=== PATIENT | female | born 1970 | race Caucasian/White ===

== ENCOUNTER 2019-03-01 21:23 | Emergency (ER) | payer BC, MEDICAID, SELFPAY ==
[2019-03-01 21:28] VITALS: BP 168/102; PULSE 62; RESP 20; TEMP 36.4; O2SAT 100; BMI 21.9
--- NOTE | 2019-03-01 22:24 | XR_ITS ---
WS: [id number] PORTABLE CHEST HISTORY: chest pain COMPARISON: 05/24/2018 Mild pulmonary hyperinflation. Increased density posterior to the RIGHT heart consistent with partial atelectasis of the RIGHT middle lobe. No pleural effusion or pneumothorax. Cardiac size: Normal. Mediastinum/Aorta: Normal mediastinum. No osseous abnormality seen. XR/XR chest 1V portable [id number] IMPRESSION: Partial atelectasis of the RIGHT middle lobe. Chronic emphysema.
--- NOTE | 2019-03-01 22:26 | W.ED.CHESTPA ---
HPI - Chest Pain General: Chief Complaint: Chest Pain Stated Complaint: cp Time Seen by Provider: 03/01/19 22:24 History of Present Illness: HPI narrative: Patient has a 48-year-old female comes into the ED with chest pain. She had an NH a couple years ago and is currently a smoker. She states that this chest pain is nothing like her chest pain when she had her NH. She says it feels like a pressure and it started out 3 weeks ago. The chest pain is not really changed much in the last 3 weeks. What brought her in today is she developed some pain in her right arm that radiated up into her shoulder. She states she has some shortness of breath if she uses the stairs. Denies fever, chills, cough, nasal congestion, sinus pain, abdominal pain, nausea, vomiting, constipation, diarrhea, hematuria, dysuria, blood in the stool. Denies any numbness or tingling or weakness to extremities. Patient is also has a little bit of itching and mild pressure/pain in his left ear. She says she takes an antihistamine daily to help manage nasal congestion. Review of Systems General: Reports: 10 or more systems reviewed and unremarkable except in HPI and below PFSH ED PFSH: Statuses (acute, chronic, etc) shown below reflect problem list status as previously entered and may not be historically accurate Social History Smoking and tobacco status: current every day smoker Physical Exam Const: COMMON NORMALS: oriented x3 HENMT: COMMON NORMALS: normocephalic HEAD & SCALP: normocephalic MOUTH: oral and palatal mucosa normal THROAT: posterior oropharynx normal and uvula midline Neck/C-Spine: COMMON NORMALS: supple GENERAL: Yes normal visual inspection Resp: COMMON NORMALS: normal respiratory effort, no retractions, no use of accessory muscles and clear to auscultation bilaterally AUSCULTATION: clear to auscultation bilaterally Cardio: COMMON NORMALS: regular rate, regular rhythm, S1 normal heart sound, S2 normal heart sound, no gallops, no clicks, no murmurs and peripheral pulses 2+ throughout RATE: regular rate RHYTHM: regular rhythm HEART SOUNDS: S1 normal and S2 normal PERIPHERAL PULSES: pulses 2+ throughout GI: COMMON NORMALS: normal to inspection, nondistended, normoactive bowel sounds, soft to palpation, non-tender and no masses PALPATION: Yes soft : COMMON NORMALS: Yes no CVA tenderness BLADDER/KIDNEY EXAM: Yes no CVA tenderness Back/Pelvis: COMMON NORMALS: no CVA tenderness Extremity: COMMON NORMALS: normal to inspection, full ROM and normal capillary refill RIGHT UPPER EXTREMITY: Yes upper arm Right upper arm: Yes inspection (normal), Yes palpation (nontender) and Yes neurovascular exam (intact) Neuro: COMMON NORMALS: oriented x3 and moves all extremities Course ED course: Patient had a HEART score of 4. I discussed with the patient her risks. I told patient that we would recommend that she stays gets admitted for some further cardiac testing such as a stress test. Patient decided to discharge instead against our medical advice. Vital Signs: Vital signs: Vital Signs Temperature 97.6 F 03/01/19 21:28 Pulse Rate 61 03/02/19 03:04 Respiratory Rate 16 03/02/19 03:04 Blood Pressure 133/97 03/02/19 03:04 Pulse Oximetry 95 03/02/19 03:04 MDM - Chest Pain MDM Narrative: Medical decision making narrative: Patient is a 48-year-old female comes to the ED with chest pain. Baseline and 2 hour Troponins were negative and EKG was normal sinus rhythm and showed no ST segment elevation or depression. I discussed with the patient's risk factors of prior NH, hypertension, high cholesterol and smoking. Patient had a HEART score of 4.I told patient that we would recommend that she stays and gets admitted for some further cardiac testing such as a stress test. Patient decided to discharge instead against our medical advice. She signed an AMA form and I made her aware of the risks of leaving here today against our recommendation. I also made her aware that she can return to the ED anytime for chest pain. Lab Data: Attestation: I reviewed the patient's lab results. Labs: Lab Results 03/01/19 03/01/19 03/01/19 Range/Units 22:50 22:50 22:50 WBC 9.3 (4.0-10.0) 10^3/ uL RBC 4.79 (4.1-5.3) 10^6/u L Hgb 15.1 (11.5-15.3) g/dL Hct 44.7 (37.0-47.0) % MCV 93.3 (81-99) fL MCH 31.5 (28.0-34.0) pg MCHC 33.8 (30.0-36.0) g/dL RDW 12.1 (12.1-15.1) % Plt Count 218 (130-400) 10^3/c mm MPV 9.3 (7.4-10.4) fL Neut % (Auto) 49.1 % Lymph % (Auto) 40.5 % [place] % (Auto) 6.9 % Eos % (Auto) 2.8 % Baso % (Auto) 0.5 % Neut # (Auto) 4.6 (1.8-7.7) 10^3/u L Lymph # (Auto) 3.8 (0.8-4.8) 10^3/u L [place] # (Auto) 0.6 (0.2-0.9) 10^3/u L Eos # (Auto) 0.3 (0.0-0.8) 10^3/u L Baso # (Auto) 0.1 (0.0-0.1) 10^3/u L Nucleated RBC % (a uto) 0 % Nucleated RBCs # 0.0 /100WBC Sodium 141 (136-145) mmol/L Potassium 3.8 (3.5-5.1) mmol/L Chloride 104 (98-107) mmol/L Carbon Dioxide 26 (22-29) mmol/L Anion Gap 14.8 (5-19) BUN 15 (6-20) mg/dL Creatinine 0.8 (0.5-0.9) mg/dL GFR Calculation 77.2 L (90-130) mL/min Glucose 100 (74-109) mg/dL Calcium 10.6 H (8.6-10.0) mg/Dl Total Bilirubin 0.2 (0.15-1.2) mg/dL AST 21 (0-32) U/L ALT 12 (0-33) U/L Alkaline Phosphata se 61 (35-105) IU/L Troponin T Baselin e 6 (0-10) ng/mL Troponin T 120 Min keith (0-10) ng/mL Delta Troponin T (0-10) ABS# Total Protein 6.5 L (6.6-8.7) g/dL Albumin 4.8 (3.5-5.2) g/dL Globulin 1.7 (1.3-4.6) g/dL HCG, Qual (Negative) Urine Color (Yellow) Urine Appearance (CLEAR) Urine pH (5-7) Ur Specific Gravit y (1.005-1.030) Urine Protein (Negative) Urine Glucose (UA) (Normal) Urine Ketones (Negative) Urine Occult Blood (Negative) Urine Nitrate (Negative) Urine Bilirubin (NEGATIVE) Urine Urobilinogen (Negative) mg/dL Ur Leukocyte Chichi ase (Negative) 03/02/19 03/02/19 03/02/19 Range/Units 00:02 00:02 00:41 WBC (4.0-10.0) 10^3/ uL RBC (4.1-5.3) 10^6/u L Hgb (11.5-15.3) g/dL Hct (37.0-47.0) % MCV (81-99) fL MCH (28.0-34.0) pg MCHC (30.0-36.0) g/dL RDW (12.1-15.1) % Plt Count (130-400) 10^3/c mm MPV (7.4-10.4) fL Neut % (Auto) % Lymph % (Auto) % [place] % (Auto) % Eos % (Auto) % Baso % (Auto) % Neut # (Auto) (1.8-7.7) 10^3/u L Lymph # (Auto) (0.8-4.8) 10^3/u L [place] # (Auto) (0.2-0.9) 10^3/u L Eos # (Auto) (0.0-0.8) 10^3/u L Baso # (Auto) (0.0-0.1) 10^3/u L Nucleated RBC % (a uto) % Nucleated RBCs # /100WBC Sodium (136-145) mmol/L Potassium (3.5-5.1) mmol/L Chloride (98-107) mmol/L Carbon Dioxide (22-29) mmol/L Anion Gap (5-19) BUN (6-20) mg/dL Creatinine (0.5-0.9) mg/dL GFR Calculation (90-130) mL/min Glucose (74-109) mg/dL Calcium (8.6-10.0) mg/Dl Total Bilirubin (0.15-1.2) mg/dL AST (0-32) U/L ALT (0-33) U/L Alkaline Phosphata se (35-105) IU/L Troponin T Baselin e (0-10) ng/mL Troponin T 120 Min keith 6.00 (0-10) ng/mL Delta Troponin T 0 (0-10) ABS# Total Protein (6.6-8.7) g/dL Albumin (3.5-5.2) g/dL Globulin (1.3-4.6) g/dL HCG, Qual Negative (Negative) Urine Color Yellow (Yellow) Urine Appearance Clear (CLEAR) Urine pH 5 (5-7) Ur Specific Gravit y 1.025 (1.005-1.030) Urine Protein Neg (Negative) Urine Glucose (UA) Norm (Normal) Urine Ketones Negative (Negative) Urine Occult Blood Neg (Negative) Urine Nitrate Negative (Negative) Urine Bilirubin Neg (NEGATIVE) Urine Urobilinogen 1 H (Negative) mg/dL Ur Leukocyte Chichi ase Negative (Negative) Imaging Data^: CXR: Attestation: I personally reviewed and interpreted this imaging study as follows: My impression: No acute findings. Pending final radiology report. EKG Data^: EKG 1: Attestation: I personally reviewed and interpreted this EKG as follows: EKG interpretation date: 03/01/19 Interpretation: Normal sinus rhythm. [address] segment elevation or depression noted. P waves present EKG 2: Attestation: I personally reviewed and interpreted this EKG as follows: EKG interpretation date: 03/02/19 EKG interpretation time: 02:15 Interpretation: Normal sinus rhythm. P waves present. [address] segment elevation or depression. Discharge Plan Discharge Patient Disposition: Home, Self-Care Clinical Impression: Atypical chest pain Condition: Stable Prescriptions: No Action atorvastatin 80 mg tablet 80 mg PO DAILY RF: 0 aspirin 81 mg Tablet,Delayed Release (Dr/Ec) 81 mg PO DAILY RF: 0 metoprolol tartrate 25 mg tablet 25 mg PO BID RF: 0 Discharge Orders: Discharge Order (Routine); Ordered 03/02/19 Ordered By: Evelio Alatorre Referrals: Yolanda Nuno DO [Primary Care Provider] - Discharge Diet: Regular Discharge Activity: Increase activity as tolerated Activity Restrictions/Additional Instructions: Follow-up with your primary care doctor in 5-7 days for reevaluation. Discussed with you your heart health risk factors such as smoking, high cholesterol and hypertension. It was our recommendation for you to be admitted for further cardiac evaluation and it was your decision to be discharged home. You were made aware of the potential risks and outcomes with you discharging home. Please return to ED at any time if you're experiencing further chest pain. Discharge Date/Time: 03/02/19 03:05 Coding Level of Care Code ED Account Classification Clerk for Luisito Barker
[2019-03-01 22:56] LABS: Basophils # 0.1 10^3/uL (0.0-0.1); Basophils % 0.5 %; Eosinophils # 0.3 10^3/uL (0.0-0.8); Eosinophils % 2.8 %; Hematocrit 44.7 % (37.0-47.0); Hemoglobin 15.1 g/dL (11.5-15.3); Lymphocytes # 3.8 10^3/uL (0.8-4.8); Lymphocytes % 40.5 %; Mean Corpuscular HGB Conc 33.8 g/dL (30.0-36.0); Mean Corpuscular Hemoglobin 31.5 pg (28.0-34.0); Mean Corpuscular Volume 93.3 fL (81-99); Mean Platelet Volume 9.3 fL (7.4-10.4); Monocytes # 0.6 10^3/uL (0.2-0.9); Monocytes % 6.9 %; Neutrophils # 4.6 10^3/uL (1.8-7.7); Neutrophils % 49.1 %; Nucleated Red Blood Cells % 0 %; Platelet Count 218 10^3/cmm (130-400); Red Blood Count 4.79 10^6/uL (4.1-5.3); Red Cell Distribution Width 12.1 % (12.1-15.1); White Blood Count 9.3 10^3/uL (4.0-10.0)
[2019-03-01 23:14] LABS: Alanine Aminotransferase 12 U/L (0-33); Albumin Level 4.8 g/dL (3.5-5.2); Alkaline Phosphatase 61 IU/L (35-105); Anion Gap 14.8 (5-19); Aspartate Amino Transferase 21 U/L (0-32); Blood Urea Nitrogen 15 mg/dL (6-20); Calcium 10.6 mg/Dl (8.6-10.0); Carbon Dioxide 26 mmol/L (22-29); Chloride 104 mmol/L (98-107); Globulin 1.7 g/dL (1.3-4.6); Glomerular Filtration Rate 77.2 mL/min (90-130); Glucose 100 mg/dL (74-109); Potassium 3.8 mmol/L (3.5-5.1); Sodium 141 mmol/L (136-145); Total Bilirubin 0.2 mg/dL (0.15-1.2); Total Protein 6.5 g/dL (6.6-8.7); Troponin(5th) Baseline 6 ng/mL (0-10)
[2019-03-02 00:09] LABS: Add Urine Microscopic? NO
[2019-03-02 00:11] LABS: Blood Urine Neg (Negative); Glucose Urine UA Norm (Normal); Ketones Urine Negative (Negative); Protein Urine Neg (Negative); Specific Gravity, Urine 1.025 (1.005-1.030); Urine Appearance Clear (CLEAR); Urine Color Yellow (Yellow); pH Urine 5 (5-7)
[2019-03-02 00:12] LABS: Bilirubin Urine Neg (NEGATIVE); HCG Qualitative Urine. Negative (Negative); Leukocyte Esterase Urine Negative (Negative); Nitrate Urine Negative (Negative); Urobilinogen Urine 1 mg/dL (Negative)
--- NOTE | 2019-03-02 00:24 | ECG_ITS ---
Measurements Intervals [place] Rate: 61 P: 66 ME: 168 QRS: 70 QRSD: 106 T: 52 QT: 443 QTc: 448 SINUS RHYTHM WITH SINUS ARRHYTHMIA Compared to ECG 05/24/2018 09:04:14 No significant changes Electronically Signed On 03-02-2019 15:28:18 POLITICAL ORGANIZER by Cuco Perera M.D. [id number]
[2019-03-02 01:12] LABS: Troponin 5 2HR Delta 0 ABS# (0-10)
[2019-03-02 03:04] VITALS: BP 133/97; PULSE 61; RESP 16; O2SAT 95
== END 2019-03-02 03:05 | disposition home or self-care (01) ==
PROVIDERS: Emergency Provider Physician Assistant; Family Provider Family Medicine; PCP Family Medicine
DX: R07.89 Other chest pain (principal); Z79.82 Long term (current) use of aspirin; F17.210 Nicotine dependence, cigarettes, uncomplicated
CPT/HCPCS: 36415; 71045; 80053; 81003; 81025; 84484; 85025; 93005; 99281

== ENCOUNTER → 2019-05-29 18:06 | Outpatient (BNVA) | payer BC, MEDICAID, SELFPAY | PROVIDERS: Family Provider Family Medicine; PCP Family Medicine; Visit Provider Nurse Practitioner Family | DX: N39.0 Urinary tract infection, site not specified (principal); B37.3 Candidiasis of vulva and vagina; J30.9 Allergic rhinitis, unspecified; S39.012A Strain of muscle, fascia and tendon of lower back, initial encounter | CPT/HCPCS: 81000 ==

== ENCOUNTER → 2019-09-18 14:51 | Outpatient (BNVA) | payer BC, MEDICAID, SELFPAY | PROVIDERS: Family Provider Family Medicine; PCP Family Medicine; Visit Provider Nurse Practitioner Family | DX: Z11.59 Encounter for screening for other viral diseases (principal); R68.83 Chills (without fever); R53.81 Other malaise; R53.83 Other fatigue; R05 Cough; R06.02 Shortness of breath | CPT/HCPCS: 87635 ==

== ENCOUNTER 2019-11-09 11:33 | Outpatient (CLI) | payer BC, MEDICAID, SELFPAY ==
--- NOTE | 2019-11-09 11:40 | MM_ITS ---
WS: [id number] SCREENING DIGITAL MAMMOGRAM WITH CAD HISTORY: SCREENING COMPARISON: 10/15/2017, 09/24/2017 and 07/03/2014 Bilateral CC and MLO views submitted. Computer aided detection analyzed. Breast composition: The breasts are heterogeneously dense, which may obscure small masses. Asymmetry seen in the posterior LEFT breast central to the nipple measures 10 mm. May be at the nippl e line on the lateral projection. Otherwise no abnormality. MM/[place] [id number] IMPRESSION: BI-RADS: 0-Incomplete: Need additional imaging evaluation FOLLOW UP: Need Additional Imaging LEFT breast: Spot compression views (CC and MLO). True ML. Ultrasound to follow if abnormality persists.
== END 2019-11-09 11:34 | disposition home or self-care (01) ==
LOC: RADSHAW 11:38
PROVIDERS: PCP Family Medicine; Visit Provider Family Medicine
DX: Z12.31 Encounter for screening mammogram for malignant neoplasm of breast (principal); N64.89 Other specified disorders of breast
CPT/HCPCS: 77067

== ENCOUNTER 2019-12-07 13:30 | Outpatient (CLI) | payer BC, MEDICAID, SELFPAY ==
--- NOTE | 2019-12-07 13:36 | US_ITS ---
WS: [id number] ADDITIONAL VIEWS LEFT MAMMOGRAM LEFT BREAST ULTRASOUND HISTORY: LT BREAST ASYMMETRY COMPARISON: 11/09/2019, 10/15/2017, 09/24/2017 and 07/07/2012 LEFT MAMMOGRAM: Spot compression views and true ML. Asymmetry persists in the posterior LEFT breast. Asymmetry measures about 7 mm. No distortion. LEFT BREAST ULTRASOUND 2-D and color Doppler imaging submitted. No corresponding findings by ultrasound to suggest a mass or distortion in the LEFT breast at 11-12 o 'clock. Breast parenchyma is very dense by ultrasound. US/US breast LT limited* [id number] IMPRESSION: BI-RADS: 3-Probably Benign FOLLOW UP: 6 Month Follow-up Recommend diagnostic LEFT mammogram in 6 months with possible ultrasound. I fav or this asymmetry within the LEFT breast is probably benign fibroglandular tiss ue but does appear to have slightly changed over the last several years.
== END 2019-12-07 13:31 | disposition home or self-care (01) ==
LOC: RADSHAW 13:34
PROVIDERS: PCP Family Medicine; Visit Provider Family Medicine
DX: N64.89 Other specified disorders of breast (principal)
CPT/HCPCS: 76642; 77065

== ENCOUNTER 2021-10-26 15:40 | Emergency (ER) | payer MEDICAID, SELFPAY ==
--- NOTE | 2021-10-26 15:40 | XRR_ITS ---
PROCEDURE INFORMATION: Exam: XR Chest Exam date and time: 10/26/2021 3:49 PM Age: 51 years old Clinical indication: Shortness of breath; Additional info: SOB TECHNIQUE: Imaging protocol: Radiologic exam of the chest. Views: 1 view. COMPARISON: CR XR chest 1V portable [id number] 03/01/2019 10:40 PM FINDINGS: Lungs: There is mild hyperinflation of lungs. No interstitial or airspace opacities. Pleural spaces: There are no pleural effusions or pneumothorax. Heart/Mediastinum: The heart size is normal. The mediastinal contour is normal. The trachea is in the midline. Bones/joints: No acute abnormalities. XR/XR chest 1V portable [id number] IMPRESSION: Mild hyperinflation of lungs. No interstitial or airspace opacities in the lungs.
--- NOTE | 2021-10-26 15:40 | ECG_ITS ---
[facility] Test Date: 2021-10-26 Pat Name: Maria De Jesus Black Department: Room: Gender: Female Magnetizer: : 1970 Requested By: Joesluis Dai Order Number: [id number] Mayra MD: Cuco Perera M.D. Measurements Intervals [place] Rate: 83 P: 75 SC: 134 QRS: 78 QRSD: 94 T: 68 QT: 379 QTc: 446 Interpretive Statements SINUS RHYTHM POSSIBLE LEFT ATRIAL ENLARGEMENT [-0.1mV P-WAVE IN V1/V2] Compared to ECG 03/02/2019 02:12:33 Sinus arrhythmia no longer present Electronically Signed On 10-26-2021 17:36:28 CDT by Cuco Perera M.D. [id number]
[2021-10-26 15:59] VITALS: BP 155/104; PULSE 76; RESP 16; TEMP 36.2; O2SAT 97; BMI 21.2
--- NOTE | 2021-10-26 16:31 | W.ED.BACK ---
HPI - Back Pain/Injury General: Chief Complaint: Back Pain/Injury Stated Complaint: SOB Time Seen by Provider: 10/26/21 16:20 History of Present Illness: 51-year-old female comes in today for complaints of cough, muscle aches, and congestion. Patient has been ill since last Wednesday but tested positive for COVID-19 on Wednesday. Patient works in the hospital stress unit. Patient reports productive cough. Patient was worried that she may be developing pneumonia. Review of Systems Const: Reports: body aches Resp: Reports: productive cough Musc: Reports: back pain PFSH ED PFSH: Medical History (Updated 10/26/21 @ 16:32 by SELIN Pa) ASHD (arteriosclerotic heart disease) Dyslipidemia HTN (hypertension) Ischemic cardiomyopathy Surgical History S/P PTCA (percutaneous transluminal coronary angioplasty) Family History Father Diabetes Hypertension Mother Hypertension Social History Smoking and tobacco status: current every day smoker cigarettes Packs smoked per day: 1 Alcohol intake: current Alcohol intake frequency: few times a month Marital status: Current occupational status: employed Physical Exam Const: COMMON NORMALS: alert HENMT: MOUTH: Normal oral and palatal mucosa present Neck/C-Spine: COMMON NORMALS: full ROM Resp: COMMON NORMALS: normal respiratory effort and clear to auscultation bilaterally AUSCULTATION: clear to auscultation bilaterally Cardio: COMMON NORMALS: regular rate and regular rhythm RATE: regular rate RHYTHM: regular rhythm GI: COMMON NORMALS: Soft to palpation and non-tender PALPATION: Yes Soft to palpation Back/Pelvis: THORACIC SPINE/UPPER BACK: No thoracic spinal tenderness LUMBAR SPINE/LOWER BACK: No lumbar spinal tenderness Extremity: COMMON NORMALS: normal to inspection Neuro: SENSORIUM/ORIENTATION: Yes alert Skin: COMMON NORMALS: turgor normal GENERAL SKIN EXAM: turgor normal Course Vital Signs: Vital signs: Vital Signs Temperature 97.1 F L 10/26/21 15:59 Pulse Rate 76 10/26/21 15:59 Respiratory Rate 16 09/18/22 15:59 Blood Pressure 155/104 09/18/22 15:59 Pulse Oximetry 97 10/26/21 15:59 Oxygen Delivery Me thod 10/26/21 15:59 MDM - Back Pain/Injury Medical Decision Making Patient comes in today for complaints of productive cough with back discomfort. On exam lungs had good air movement throughout. Skin was warm and dry. Respirations were even. Vital signs were normal. Differential diagnosis includes COVID-19, bronchitis secondary to COVID-19, pneumonia secondary to COVID-19. Chest x-ray was unremarkable. EKG was normal. Reviewed exam with patient with recommendations for treatment for bronchitis. Recommend follow-up with primary care for further instruction. Return to ER for new concerns or worsening symptoms. Discharge Plan Discharge Patient Disposition: Home Clinical Impression: COVID-19 Condition: Stable Prescriptions: New dexamethasone 6 mg tablet 6 mg PO DAILY Qty: 5 0RF No Action venlafaxine [Effexor XR] 37.5 mg capsule,extended release 24hr 37.5 mg PO DAILY cetirizine 10 mg tablet 10 mg PO DAILY atorvastatin 80 mg tablet 80 mg PO DAILY Qty: 90 3RF metoprolol tartrate 25 mg tablet 25 mg PO BID Qty: 180 3RF aspirin 81 mg Tablet,Delayed Release (Dr/Ec) 81 mg PO DAILY Discharge Orders: Discharge ED (Routine); Ordered 10/26/21 Ordered By: Naeem Asher Referrals: Brielle Lyles DO [Primary Care Provider] - Discharge Diet: Usual diet Discharge Activity: Increase activity as tolerated Patient Instructions: COVID-19 (Coronavirus Disease 2019) (ED) Activity Restrictions/Additional Instructions: Drink plenty of fluids. Use acetaminophen and ibuprofen for aches and pain. Take dexamethasone 6 mg daily for the next 5 days to help with cough, congestion, sore throat, and shortness of breath. Follow-up with primary care as needed. Return to ER for worsening symptoms such as fever greater than 100.4, shortness of breath, chest pain. Stand Alone Forms: Work/School Release Coding Level of Care Code ED Polysomnographic Technician for Luisito Barker
[2021-10-26 16:34] VITALS: BP 168/112; O2SAT 97
[2021-10-26] MEDS: dexamethasone 4 mg Tablet 6 MG PO (16:44)
== END 2021-10-26 16:56 | disposition home or self-care (01) ==
PROVIDERS: Emergency Provider Nurse Practitioner Family; PCP Family Medicine
DX: U07.1 COVID-19 (principal); Z79.82 Long term (current) use of aspirin; E78.5 Hyperlipidemia, unspecified; I10 Essential (primary) hypertension; F17.210 Nicotine dependence, cigarettes, uncomplicated
CPT/HCPCS: 71045; 93005; 99284; J8540

== ENCOUNTER 2021-11-17 12:59 | Emergency (ER) | payer MEDICAID, SELFPAY ==
[2021-11-17 13:47] VITALS: BP 157/102; PULSE 75; RESP 18; TEMP 36.7; O2SAT 96; BMI 21.9
--- NOTE | 2021-11-17 14:26 | W.ED.HA ---
HPI - Headache General: Chief Complaint: Headache Stated Complaint: Heachache, high BP Time Seen by Provider: 11/17/21 14:14 History of Present Illness: 51-year-old female presents with a headache for the last 4 days. She also feels like her blood pressures been running high. Patient reports that she has a history of high blood pressure but stopped taking her medication about a year ago. Patient is also currently on doxycycline due to infection in her finger. Patient reports that she is only got 1 or 2 days left of her doxycycline. Patient reports that the headache kind of starts in the back and wraps around to the bilateral front. She has some mild photophobia. She denies any nausea or vomiting. She reports her last couple days she been trying Tylenol and ibuprofen with minimal relief. She denies any fever, chills, vision changes, chest pain, shortness of breath. Associated symptoms: Deny chest pain, confusion, diaphoresis, fever(s), nausea, rash or vomiting Review of Systems Const: Denies: fever(s), chills or diaphoresis Eyes: Reports: photophobia; Denies: change in vision ENMT: Denies: throat pain or mouth pain Card: Denies: chest pain or palpitations Resp: Denies: dyspnea, non-productive cough or wheezing GI: Denies: abdominal pain, nausea or vomiting : Denies: flank pain or difficulty voiding Musc: Denies: neck pain or back pain Skin/Breast: Denies: rash or pruritus Neuro: Reports: headache(s); Denies: numbness in extremities, weakness in extremities, difficulty walking or confusion Psych: Denies: anxiety or depression [facility] ED PFSH: Medical History (Updated 10/26/21 @ 16:32 by SELIN Pa) ASHD (arteriosclerotic heart disease) Dyslipidemia HTN (hypertension) Ischemic cardiomyopathy Surgical History S/P PTCA (percutaneous transluminal coronary angioplasty) Family History Father Diabetes Hypertension Mother Hypertension Social History Smoking and tobacco status: current every day smoker cigarettes Packs smoked per day: 1 Alcohol intake: current Alcohol intake frequency: few times a month Marital status: Current occupational status: employed Course Vital Signs: Vital signs: Vital Signs Temperature 98.0 F 11/17/21 13:47 Pulse Rate 75 11/17/21 13:47 Respiratory Rate 18 11/17/21 13:47 Blood Pressure 175/112 11/17/21 14:42 Pulse Oximetry 96 11/17/21 13:47 Oxygen Delivery Me thod 11/17/21 13:47 MDM - Headache Medical Decision Making Patient felt better following treatment. Patient reports her headache started to go away prior to treatment with enalapril. However she felt significant better following the enalapril. Patient has no acute findings on her labs. We will start her on lisinopril. Patient stable and discharged home. Lab Data : 11/17/21 14:55 11/17/21 14:55 Laboratory Results WBC 8.9 10^3/uL (4.0-10.0) 11/17/21 14:55 RBC 5.44 10^6/uL (4.1-5.3) H 11/17/21 14:55 Hgb 17.0 g/dL (11.5-15.3) H 11/17/21 14:55 Hct 50.1 % (37.0-47.0) H 11/17/21 14:55 MCV 92.1 fl (81-99) 11/17/21 14:55 MCH 31.3 pg (28.0-34.0) 11/17/21 14:55 MCHC 33.9 g/dL (30.0-36.0) 11/17/21 14:55 RDW 12.3 % (12.1-15.1) 11/17/21 14:55 Plt Count 256 10^3/cmm (130-400) 11/17/21 14:55 MPV 9.2 fL (7.4-10.4) 11/17/21 14:55 Neut % (Auto) 43.0 % 11/17/21 14:55 Lymph % (Auto) 46.9 % 11/17/21 14:55 [place] % (Auto) 7.4 % 11/17/21 14:55 Eos % (Auto) 1.4 % 11/17/21 14:55 Baso % (Auto) 0.7 % 11/17/21 14:55 Neut # (Auto) 3.82 10^3/uL (1.8-7.7) 11/17/21 14:55 Lymph # (Auto) 4.2 10^3/uL (0.8-4.8) 11/17/21 14:55 [place] # (Auto) 0.7 10^3/uL (0.2-0.9) 11/17/21 14:55 Eos # (Auto) 0.1 10^3/uL (0.0-0.8) 11/17/21 14:55 Baso # (Auto) 0.1 10^3/uL (0.0-0.1) 11/17/21 14:55 Nucleated RBC % (auto) 0 % 11/17/21 14:55 Nucleated RBCs # 0.0 /100WBC 11/17/21 14:55 Sodium 138 mmol/L (136-145) 11/17/21 14:55 Chloride 103 mmol/L (98-107) 11/17/21 14:55 Carbon Dioxide 22 mmol/L (22-29) 11/17/21 14:55 BUN 15 mg/dL (6-20) 11/17/21 14:55 Creatinine 0.6 mg/dL (0.5-0.9) 11/17/21 14:55 GFR Calculation 106.3 mL/min (90-130) 11/17/21 14:55 Glucose 93 mg/dL (65-115) 11/17/21 14:55 Calculated Osmolality 287 mOsm/kg (285-295) 11/17/21 14:55 Calcium 9.4 mg/dL (8.5-10.5) 11/17/21 14:55 Magnesium 2.1 mg/dL (1.7-2.3) 11/17/21 14:55 Discharge Plan Discharge Condition: Stable Prescriptions: No Action doxycycline hyclate 100 mg tablet 100 mg PO BID 7 Days Qty: 14 0RF Aspir-81 81 mg Tablet,Delayed Release (Dr/Ec) 81 mg PO DAILY Advil 200 mg Tablet 200 mg PO Q6H PRN (Reason: Pain) Tylenol 325 mg Capsule 325 mg PO QID PRN (Reason: Pain) Coding Level of Care Code ED Metal Drill Operator for Chg Lucero
[2021-11-17 14:42] VITALS: BP 175/112
[2021-11-17] MEDS: sodium chloride 0.9% 1,000 ML 999 ML IV (14:42)
[2021-11-17] MEDS: ketorolac 30 mg/mL INJ 15 MG IVP (14:42)
[2021-11-17 15:02] LABS: Basophils # 0.1 10^3/uL (0.0-0.1); Basophils % 0.7 %; Eosinophils # 0.1 10^3/uL (0.0-0.8); Eosinophils % 1.4 %; Hematocrit 50.1 % (37.0-47.0); Lymphocytes # 4.2 10^3/uL (0.8-4.8); Lymphocytes % 46.9 %; Mean Corpuscular HGB Conc 33.9 g/dL (30.0-36.0); Mean Corpuscular Hemoglobin 31.3 pg (28.0-34.0); Mean Corpuscular Volume 92.1 fl (81-99); Mean Platelet Volume 9.2 fL (7.4-10.4); Monocytes # 0.7 10^3/uL (0.2-0.9); Monocytes % 7.4 %; Neutrophils # 3.82 10^3/uL (1.8-7.7); Nucleated Red Blood Cells % 0 %; Platelet Count 256 10^3/cmm (130-400); Red Blood Count 5.44 10^6/uL (4.1-5.3); Red Cell Distribution Width 12.3 % (12.1-15.1); White Blood Count 8.9 10^3/uL (4.0-10.0)
[2021-11-17] MEDS: enalaprilat 1.25 mg/mL Inj IVP (15:12)
[2021-11-17 15:26] LABS: Blood Urea Nitrogen 15 mg/dL (6-20); Calcium 9.4 mg/dL (8.5-10.5); Carbon Dioxide 22 mmol/L (22-29); Chloride 103 mmol/L (98-107); Glomerular Filtration Rate 106.3 mL/min (90-130); Glucose 93 mg/dL (65-115); Magnesium 2.1 mg/dL (1.7-2.3); Osmolality Calculated 287 mOsm/kg (285-295); Sodium 138 mmol/L (136-145)
[2021-11-17 15:56] LABS: Anion Gap 17.2 (5-19); Potassium 4.2 mmol/L (3.5-5.1)
[2021-11-17 16:17] VITALS: BP 136/94; PULSE 71; RESP 17; O2SAT 98
== END 2021-11-17 16:18 | disposition home or self-care (01) ==
PROVIDERS: Emergency Provider Student in an Organized Health Care Education/Training Program
DX: R51.9 Headache, unspecified (principal); I10 Essential (primary) hypertension
CPT/HCPCS: 80048; 83735; 85025; 96361; 96374; 96375; 99284; J1885; J3490; J7030

== ENCOUNTER 2022-04-23 08:03 | Emergency (ER) | payer OTHER, MEDICAID, SELFPAY ==
[2022-04-23] VITALS (16 sets, daily range): BP systolic 116–168; BP diastolic 74–120; PULSE 56–67; RESP 13–21; TEMP 36.3; O2SAT 96–100
--- NOTE | 2022-04-23 08:14 | XR_ITS ---
WS: [id number] XR chest 1V portable [id number] REASON FOR EXAM: chest pain FINDINGS: The chest is unchanged compared to 10/26/2021. Risk aorta and mediastinum are within normal limits. Normal heart size. Calcified granulomatous disease in both hemithoraces. No active pulmonary parenchymal or pleural disease. Bony thorax is intact without significant focal abnormality. XR/XR chest 1V portable [id number] IMPRESSION: No acute chest abnormality.
--- NOTE | 2022-04-23 08:19 | ECG_ITS ---
[facility] Test Date: 2022-04-23 Pat Name: Maria De Jesus Black Department: Room: Gender: Female Nursing Unit Manager: : 1970 Requested By: Ari Cavazos Order Number: [id number] Reading MD: DESI DAILEY Measurements Intervals [place] Rate: 68 P: 74 MD: 150 QRS: 74 QRSD: 101 T: 72 QT: 424 QTc: 452 Interpretive Statements SINUS RHYTHM EARLY REPOLARIZATION [ST ELEVATION WITH NORMALLY INFLECTED T-WAVE] Compared to ECG 10/26/2021 16:07:05 Early repolarization now present Electronically Signed On 04-25-2022 23:40:57 CDT by DESI DAILEY [id number]
--- NOTE | 2022-04-23 08:21 | W.ED.CHESTPA ---
HPI - Chest Pain General: Chief Complaint: Chest Pain Stated Complaint: Chest Pain Time Seen by Provider: 04/23/22 08:04 Source: patient Mode of arrival: ambulatory History of Present Illness: 52-year-old female presents to the emergency room with complaints of chest discomfort that began this morning after she had gotten up had a cup of coffee she was going for second cup of coffee began to have chest pain left-sided radiating to her left arm. She has a known history of coronary disease with mild ischemic cardiomyopathy. There is a history of dyslipidemia and hypertension. There is been some issues with her blood pressure control in the past previous cardiology note reviewed she was recently switched from lisinopril to metoprolol. MD complaint: chest pain Onset: during rest Pain location: left chest Pain radiation: left arm Quality: tightness and aching Exacerbating factors: nothing Associated symptoms: Deny abdominal pain, diaphoresis, dyspnea, fever(s), leg edema, nausea, palpitations, sense of impending doom, syncope or vomiting Treatment prior to arrival: aspirin Review of Systems Const: Denies: fever(s), chills, fatigue, malaise or diaphoresis ENMT: Denies: throat pain, ear or mastoid pain, nasal discharge or nasal congestion Card: Reports: chest pain; Denies: palpitations, irregular heart rhythm, edema or syncope Resp: Denies: dyspnea GI: Denies: abdominal pain, nausea or vomiting : Denies: flank pain, difficulty voiding, dysuria, urinary frequency or urinary urgency Skin/Breast: Denies: rash or pruritus PFSH ED PFSH: Medical History (Updated 04/23/22 @ 11:29 by Ari Ramesh DO) ASHD (arteriosclerotic heart disease) Dyslipidemia HTN (hypertension) Ischemic cardiomyopathy Surgical History (Updated 04/23/22 @ 11:29 by Ari Ramesh DO) S/P PTCA (percutaneous transluminal coronary angioplasty) Family History Father Diabetes Hypertension Mother Hypertension Social History Smoking and tobacco status: current every day smoker cigarettes Packs smoked per day: 1 Alcohol intake: current Alcohol intake frequency: few times a month Marital status: Current occupational status: employed Physical Exam Const: GENERAL APPEARANCE: cooperative and comfortable ORIENTATION/CONSCIOUSNESS: Yes awake, Yes oriented to person, Yes oriented to place and Yes oriented to time HENMT: COMMON NORMALS: normocephalic, atraumatic and hearing grossly normal bilaterally HEAD & SCALP: normocephalic and atraumatic Resp: COMMON NORMALS: normal respiratory effort, No retractions, No use of accessory muscles and clear to auscultation bilaterally AUSCULTATION: clear to auscultation bilaterally Cardio: COMMON NORMALS: regular rhythm and No murmurs present (Cardio) RATE: bradycardic RHYTHM: regular rhythm GI: COMMON NORMALS: Soft to palpation and No hepatosplenomegaly present AUSCULTATION: Yes normoactive bowel sounds PALPATION: Yes Soft to palpation, No Tenderness to palpation present (GI), No Guarding due to palpation present (GI) and Yes No hepatosplenomegaly present Extremity: COMMON NORMALS: normal to inspection, capillary refill normal, no clubbing, cyanosis or edema, no calf tenderness and no pedal edema Neuro: SENSORIUM/ORIENTATION: Yes oriented to person, Yes oriented to place and Yes oriented to time Skin: COMMON NORMALS: no rashes or lesions noted GENERAL SKIN EXAM: no rashes or lesions noted Course Vital Signs: Vital signs: Vital Signs Temperature 97.4 F L 04/23/22 08:09 Pulse Rate 67 04/23/22 11:15 Respiratory Rate 17 04/23/22 11:15 Blood Pressure 135/102 04/23/22 11:45 Pulse Oximetry 96 04/23/22 11:30 MDM - Chest Pain Medical Decision Making Labs imaging and EKG reviewed no acute EKG changes. Cardiac enzymes trended normal. She had single-vessel disease which was addressed at the time of her cath remainder of her coronary arteries were normal at her previous heart cath. We will set her up for a Lexiscan sestamibi stress test. Her blood pressure still mildly elevated add 2.5 of amlodipine her heart rate is down in the 60s I do not think she tolerated an increase in the metoprolol. Finally we will add proton pump inhibitor have her follow-up with her primary care doctor in a week to recheck blood pressure and after her stress test is completed. Medical Records I reviewed the patient's medical records. Lab Data I reviewed the patient's lab results. 04/23/22 08:33 03/16/23 08:33 Radiology Impressions Chest X-Ray 04/23/22 08:14 IMPRESSION: No acute chest abnormality. Laboratory Results WBC 8.4 10^3/uL (4.0-10.0) 04/23/22 08:33 RBC 4.99 10^6/uL (4.1-5.3) 04/23/22 08:33 Hgb 15.4 g/dL (11.5-15.3) H 04/23/22 08:33 Hct 48.0 % (37.0-47.0) H 04/23/22 08:33 MCV 96.2 fl (81-99) 04/23/22 08:33 MCH 30.9 pg (28.0-34.0) 04/23/22 08:33 MCHC 32.1 g/dL (30.0-36.0) 04/23/22 08:33 RDW 13.1 % (12.1-15.1) 04/23/22 08:33 Plt Count 242 10^3/cmm (130-400) 04/23/22 08:33 MPV 9.0 fL (7.4-10.4) 04/23/22 08:33 Neut % (Auto) 51.5 % 04/23/22 08:33 Lymph % (Auto) 37.8 % 04/23/22 08:33 [place] % (Auto) 7.2 % 04/23/22 08:33 Eos % (Auto) 2.4 % 04/23/22 08:33 Baso % (Auto) 0.7 % 04/23/22 08:33 Neut # (Auto) 4.31 10^3/uL (1.8-7.7) 04/23/22 08:33 Lymph # (Auto) 3.2 10^3/uL (0.8-4.8) 04/23/22 08:33 [place] # (Auto) 0.6 10^3/uL (0.2-0.9) 04/23/22 08:33 Eos # (Auto) 0.2 10^3/uL (0.0-0.8) 04/23/22 08:33 Baso # (Auto) 0.1 10^3/uL (0.0-0.1) 04/23/22 08:33 Nucleated RBC % (auto) 0 % 04/23/22 08:33 Nucleated RBCs # 0.0 /100WBC 04/23/22 08:33 Sodium 138 mmol/L (136-145) 04/23/22 08:33 Potassium 4.3 mmol/L (3.5-5.1) 04/23/22 08:33 Chloride 105 mmol/L (98-107) 04/23/22 08:33 Carbon Dioxide 24 mmol/L (22-29) 04/23/22 08:33 Anion Gap 13.3 (5-19) 04/23/22 08:33 BUN 11 mg/dL (6-20) 04/23/22 08:33 Creatinine 0.6 mg/dL (0.5-0.9) 04/23/22 08:33 GFR Calculation 105.8 mL/min (90-130) 04/23/22 08:33 Glucose 85 mg/dL (65-115) 04/23/22 08:33 Calculated Osmolality 285 mOsm/kg (285-295) 04/23/22 08:33 Calcium 9.1 mg/dL (8.5-10.5) 04/23/22 08:33 Total Bilirubin 0.2 mg/dL (0.15-1.2) 04/23/22 08:33 AST 15 U/L (0-32) 04/23/22 08:33 ALT 7 U/L (0-33) 04/23/22 08:33 Alkaline Phosphatase 58 U/L (35-105) 04/23/22 08:33 Troponin T Baseline 6 ng/L (0-10) 04/23/22 08:33 Troponin T 120 Minute 6.00 ng/L (0-10) 04/23/22 10:45 Delta Troponin T 0 ABS# (0-10) 04/23/22 10:45 Total Protein 6.5 g/dL (6.6-8.7) L 04/23/22 08:33 Albumin 4.1 g/dL (3.5-5.2) 04/23/22 08:33 Globulin 2.4 g/dL (1.3-4.6) 04/23/22 08:33 Discharge Plan Discharge Patient Disposition: Home Clinical Impression: Atypical chest pain, S/P PTCA (percutaneous transluminal coronary angioplasty), HTN (hypertension), ASHD (arteriosclerotic heart disease) Condition: Stable Prescriptions: New Protonix 40 mg tablet,delayed release (DR/EC) 40 mg PO DAILY Qty: 30 1RF amlodipine 2.5 mg tablet 2.5 mg PO DAILY Qty: 30 0RF No Action metoprolol succinate [Toprol XL] 25 mg tablet extended release 24 hr 25 mg PO DAILY Qty: 90 5RF aspirin [Aspir-81] 81 mg Tablet,Delayed Release (Dr/Ec) 81 mg PO DAILY ibuprofen [Advil] 200 mg Tablet 200 mg PO Q6H PRN (Reason: Pain) acetaminophen [Tylenol] 325 mg Capsule 325 mg PO QID PRN (Reason: Pain) Vitamin D3 25 mcg (1,000 unit) Tablet 25 mcg PO DAILY Women's 50 Plus Multivitamin 400 mcg-500 mg calcium-20 mcg Tablet 1 tab PO DAILY Discharge Orders: Discharge ED (Routine); Ordered 04/23/22 Ordered By: Ari Ramesh Discharge Diet: Usual diet Discharge Activity: Limit activity as instructed Patient Instructions: Opioid Safety, Pain Management Activity Restrictions/Additional Instructions: PressureYou were seen today for an episode of chest pain your EKGs cardiac enzymes were negative. There is no acute changes on your EKG. Given your history of heart disease we recommend that you have a Lexiscan sestamibi stress test done. There is still running slightly elevated recommend you start a small dose of amlodipine 2.5 mg daily. Finally start Protonix 40 mg daily follow-up with your primary care doctor or wing mailer machine operator to reevaluate blood pressure within a week and after your stress test is completed. Coding Level of Care Code ED Senior Fire Protection Engineer for Luisito Barker
[2022-04-23] MEDS: aspirin 81 mg Chew Tablet 162 MG PO (08:31)
--- NOTE | 2022-04-23 08:40 | PC.NURSE ---
PT PLACED ON CONTINUOUS SPO2, NIBP, AND CM.
[2022-04-23 08:52] LABS: Basophils # 0.1 10^3/uL (0.0-0.1); Basophils % 0.7 %; Eosinophils # 0.2 10^3/uL (0.0-0.8); Eosinophils % 2.4 %; Hemoglobin 15.4 g/dL (11.5-15.3); Lymphocytes # 3.2 10^3/uL (0.8-4.8); Lymphocytes % 37.8 %; Mean Corpuscular HGB Conc 32.1 g/dL (30.0-36.0); Mean Corpuscular Hemoglobin 30.9 pg (28.0-34.0); Mean Corpuscular Volume 96.2 fl (81-99); Monocytes # 0.6 10^3/uL (0.2-0.9); Monocytes % 7.2 %; Neutrophils # 4.31 10^3/uL (1.8-7.7); Neutrophils % 51.5 %; Nucleated Red Blood Cells % 0 %; Platelet Count 242 10^3/cmm (130-400); Red Blood Count 4.99 10^6/uL (4.1-5.3); Red Cell Distribution Width 13.1 % (12.1-15.1); White Blood Count 8.4 10^3/uL (4.0-10.0)
[2022-04-23 09:12] LABS: Alanine Aminotransferase 7 U/L (0-33); Albumin Level 4.1 g/dL (3.5-5.2); Alkaline Phosphatase 58 U/L (35-105); Anion Gap 13.3 (5-19); Aspartate Amino Transferase 15 U/L (0-32); Blood Urea Nitrogen 11 mg/dL (6-20); Calcium 9.1 mg/dL (8.5-10.5); Carbon Dioxide 24 mmol/L (22-29); Chloride 105 mmol/L (98-107); Creatinine Clr Calc Pharmacy 98.2125; Globulin 2.4 g/dL (1.3-4.6); Glomerular Filtration Rate 105.8 mL/min (90-130); Glucose 85 mg/dL (65-115); Osmolality Calculated 285 mOsm/kg (285-295); Potassium 4.3 mmol/L (3.5-5.1); Sodium 138 mmol/L (136-145); Total Bilirubin 0.2 mg/dL (0.15-1.2); Total Protein 6.5 g/dL (6.6-8.7)
[2022-04-23 09:15] LABS: Troponin(5th) Baseline 6 ng/L (0-10)
--- NOTE | 2022-04-23 10:23 | ECG_ITS ---
[facility] Test Date: 2022-04-23 Pat Name: Maria De Jesus Black Department: Room: Gender: Female Director Athletic: : 1970 Requested By: Ari Cavazos Order Number: [id number] Reading MD: DESI DAILEY Measurements Intervals [place] Rate: 72 P: 68 MN: 155 QRS: 73 QRSD: 94 T: 72 QT: 406 QTc: 445 Interpretive Statements SINUS RHYTHM EARLY REPOLARIZATION [ST ELEVATION WITH NORMALLY INFLECTED T-WAVE] Compared to ECG 04/23/2022 08:14:26 No significant changes Electronically Signed On 04-25-2022 23:45:38 CDT by DESI DAILEY [id number]
[2022-04-23 11:30] LABS: Troponin 5 2HR Delta 0 ABS# (0-10)
--- NOTE | 2022-04-23 16:25 | DCPLANNER ---
professional development manager called patient due to no primary care physician - patient declines at this time
== END 2022-04-23 11:53 | disposition home or self-care (01) ==
PROVIDERS: Emergency Provider Family Medicine
DX: I10 Essential (primary) hypertension (principal); E78.5 Hyperlipidemia, unspecified; I25.10 Atherosclerotic heart disease of native coronary artery without angina pectoris; I25.5 Ischemic cardiomyopathy; F17.210 Nicotine dependence, cigarettes, uncomplicated; Z79.82 Long term (current) use of aspirin; Z98.61 Coronary angioplasty status
CPT/HCPCS: 71045; 80053; 84484; 85025; 93005; 99285

== ENCOUNTER 2022-07-10 18:30 | Emergency (ER) | payer MEDICAID, SELFPAY ==
[2022-07-10 18:33] VITALS: BP 155/102; PULSE 66; RESP 17; TEMP 36.6; O2SAT 97
--- NOTE | 2022-07-10 18:36 | ECG_ITS ---
[facility] Test Date: 2022-07-10 Pat Name: Maria De Jesus Black Department: Room: Gender: Female Hunter Skin Diver: : 1970 Requested By: Melvin Pickard Order Number: [id number] Nunez MD: Faheem Smart M.D. Measurements Intervals [place] Rate: 58 P: 72 CT: 154 QRS: 69 QRSD: 94 T: 65 QT: 429 QTc: 422 Interpretive Statements SINUS BRADYCARDIA POSSIBLE LEFT ATRIAL ENLARGEMENT [-0.1mV P-WAVE IN V1/V2] MINIMAL ST DEPRESSION [0.025+ mV ST DEPRESSION] Compared to ECG 04/23/2022 10:23:51 ST (T wave) deviation now present Sinus rhythm no longer present Early repolarization no longer present Electronically Signed On 07-11-2022 10:24:52 CDT by Faheem Smart M.D. [id number]
--- NOTE | 2022-07-16 13:09 | DCPLANNER ---
operations program manager called patient due to no primary care physician - patient stated that she sees Dr. Lyles at [facility].
== END 2022-07-10 20:56 | disposition left against medical advice (07) ==
PROVIDERS: Emergency Provider Family Medicine; PCP Family Medicine
DX: Z53.21 Procedure and treatment not carried out due to patient leaving prior to being seen by health care provider (principal)
CPT/HCPCS: 93005; 99283

== ENCOUNTER 2022-07-28 06:40 | Outpatient (CLI) | payer MEDICAID, SELFPAY ==
[2022-07-28 07:02] LABS: Basophils # 0.1 10^3/uL (0.0-0.1); Basophils % 1.1 %; Eosinophils # 0.3 10^3/uL (0.0-0.8); Eosinophils % 4.4 %; Hematocrit 48.1 % (37.0-47.0); Hemoglobin 15.9 g/dL (11.5-15.3); Lymphocytes # 3.1 10^3/uL (0.8-4.8); Lymphocytes % 42.9 %; Mean Corpuscular HGB Conc 33.1 g/dL (30.0-36.0); Mean Corpuscular Hemoglobin 31.3 pg (28.0-34.0); Mean Corpuscular Volume 94.7 fl (81-99); Monocytes # 0.4 10^3/uL (0.2-0.9); Neutrophils # 3.26 10^3/uL (1.8-7.7); Neutrophils % 45.2 %; Nucleated Red Blood Cells % 0 %; Platelet Count 216 10^3/cmm (130-400); Red Blood Count 5.08 10^6/uL (4.1-5.3); Red Cell Distribution Width 12.4 % (12.1-15.1); White Blood Count 7.2 10^3/uL (4.0-10.0)
[2022-07-28 07:23] LABS: Estmated Average Glucose 123; Hemoglobin A1C 5.9 % (4.0-6.0)
[2022-07-28 07:32] LABS: Alanine Aminotransferase 7 U/L (0-33); Albumin Level 4.3 g/dL (3.5-5.2); Alkaline Phosphatase 58 U/L (35-105); Anion Gap 15.6 (5-19); Aspartate Amino Transferase 18 U/L (0-32); Blood Urea Nitrogen 14 mg/dL (6-20); Calcium 9.2 mg/dL (8.5-10.5); Carbon Dioxide 23 mmol/L (22-29); Chloride 107 mmol/L (98-107); Cholesterol 263 mg/dL (0-200); Globulin 2.4 g/dL (1.3-4.6); Glomerular Filtration Rate 88.6 mL/min (90-130); Glucose 94 mg/dL (65-115); HDL Cholesterol 47 mg/dL (60-100); LDL Cholesterol Calculated 203 mg/dL (50-129); LDL HDL Ratio 4.32 RATIO (0.00-3.22); Osmolality Calculated 292 mOsm/kg (285-295); Potassium 4.6 mmol/L (3.5-5.1); Sodium 141 mmol/L (136-145); Thyroid Stimulating Hormone 0.62 uIU/mL (0.27-4.20); Total Bilirubin 0.3 mg/dL (0.15-1.2); Total Protein 6.7 g/dL (6.6-8.7); Triglycerides 63 mg/dL (0-150)
--- NOTE | 2022-07-28 17:47 | XR_ITS ---
WS: [id number] EXAMINATION: XR lumbar spine 2-3V* [id number] L-SPINE : 3 views REASON FOR EXAM: Chronic midline low back pain with right-sided sciatica COMPARISON: None available. ORDER DATE: 07/28/2022 5:48 PM FINDINGS: The lumbar vertebral bodies and the disc spaces are normal in width. In the lumbar vertebra, there i s no evidence of compression deformities or spondylolisthesis. There are small calcifications superim posing each kidney consistent with small intrarenal calculi Tubal ligation noted XR/XR lumbar spine 2-3V* [id number] IMPRESSION: UNREMARKABLE LUMBAR SPINE STUDY
== END 2022-07-28 06:41 | disposition home or self-care (01) ==
PROVIDERS: Visit Provider Family Medicine
DX: E11.69 Type 2 diabetes mellitus with other specified complication (principal); E78.2 Mixed hyperlipidemia; I10 Essential (primary) hypertension; M54.41 Lumbago with sciatica, right side; G89.29 Other chronic pain
CPT/HCPCS: 36415; 72100; 80053; 80061; 83036; 84443; 85025

== ENCOUNTER → 2022-12-07 14:11 | Outpatient (BNVA) | payer SELFPAY | PROVIDERS: Visit Provider Family Medicine | DX: R68.83 Chills (without fever) (principal); R53.81 Other malaise; R53.83 Other fatigue; R05.9 Cough, unspecified | CPT/HCPCS: 87400; 87426 ==

== ENCOUNTER 2023-07-09 06:20 | Outpatient (CLI) | payer OTHER, SELFPAY ==
--- NOTE | 2023-07-09 06:30 | US_ITS ---
WS: [id number] US transvaginal [id number] HISTORY: VAGINAL BLEEDING COMPARISON: 12/30/2016 Uterus: 7.3 cm x 5.5 cm x 4.4 cm. Anteverted uterus is very heterogeneous. Areas of decreased and increased echogenicity scattered thro ughout the uterus. Fibroids were identified on the prior examination from 2016. These fibroids are mo re difficult to identify today. 1 of these fibroids is noted to the LEFT myometrium measuring 1.6 x 1 .2 x 1.4 cm. The junctional zone adjacent to the endometrium is ill-defined. Nabothian cyst. Endometrium: 0.9 cm. Abnormal endometrium. Endometrium is heterogeneous with loss of the normal junct ional zone. There is an area of increased echogenicity along the posterior endometrium which may be a site of prior ablation. The endometrium is very heterogeneous. There is thickening of the endometriu m centrally. Fibroid is not excluded. Right ovary: 2.7 cm x 1.9 cm x 1.3 cm. Normal size and vascularity, no cystic or solid masses. Left ovary: 1.8 cm x 1.8 cm x 1.4 cm. Normal size and vascularity, no cystic or solid masses. No free fluid in the cul-de-sac. US/US transvaginal [id number] IMPRESSION: 1. Abnormal endometrium. Heterogeneous endometrium with areas of focal thicken ing measuring up to 0.9 cm. Loss of the normal junctional zone. Due to the hete rogeneity and loss of the junctional zone direct visualization is recommended. 2. Heterogeneous uterus is normal size. Fibroids were identified on the prior examination. These fibroids are difficult to identify today due to the diffuse heterogeneity throughout the uterus. Suspect diffuse fibroid involvement.
== END 2023-07-09 06:21 | disposition home or self-care (01) ==
LOC: RAD 06:20
PROVIDERS: PCP Family Medicine; Visit Provider Nurse Practitioner Family
DX: N93.8 Other specified abnormal uterine and vaginal bleeding (principal)
CPT/HCPCS: 76830

== ENCOUNTER → 2024-01-28 10:38 | Outpatient (BNVA) | payer OTHER, SELFPAY | PROVIDERS: PCP Family Medicine | DX: R39.9 Unspecified symptoms and signs involving the genitourinary system (principal) | CPT/HCPCS: 81000 ==

== ENCOUNTER → 2024-02-07 09:15 | Outpatient (BNVA) | payer OTHER, SELFPAY | PROVIDERS: PCP Family Medicine; Visit Provider Emergency Medicine | DX: R39.9 Unspecified symptoms and signs involving the genitourinary system (principal); N39.0 Urinary tract infection, site not specified | CPT/HCPCS: 81000; 87086 ==

== ENCOUNTER 2024-02-08 14:32 | Outpatient (CLI) | payer OTHER, SELFPAY ==
--- NOTE | 2024-02-08 14:40 | XR_ITS ---
WS: [email or web address] SCREENING DEXA SCAN [email or web address] CLINICAL INFORMATION: POSTMENOPAUSAL COMPARISON: None. FINDINGS: The L1-L4 bone mineral density measures 1.134 g/cm2. This corresponds to a T score score of -0.4 and Z score of 0.3. Left femoral neck bone mineral density measures 0.932 g/cm2. This corresponds to a T score of -0.6 an d Z score of 0.1. Right femoral neck bone mineral density measures 0.925 g/cm2. This corresponds to a T score -0.7of an d Z score of 0.0. Mean femoral neck bone mineral density measures 0.929 g/cm2. This corresponds to a T score of -0.6 an d Z score of 0.0. XR/XR DEXA axial skeleton* [id number] IMPRESSION: Normal bone mineralization. Patient's FRAX calculated 10 year probability for major osteoporotic fracture i s 4.2% and osteoporotic hip fracture is 0.2%.
== END 2024-02-08 14:33 | disposition home or self-care (01) ==
PROVIDERS: Visit Provider Nurse Practitioner
DX: Z13.820 Encounter for screening for osteoporosis (principal); Z78.0 Asymptomatic menopausal state
CPT/HCPCS: 77080

== ENCOUNTER → 2024-02-21 18:02 | Outpatient (BNVA) | payer OTHER, SELFPAY | PROVIDERS: Visit Provider Family Medicine | DX: R39.9 Unspecified symptoms and signs involving the genitourinary system (principal) | CPT/HCPCS: 81000 ==

== ENCOUNTER 2024-03-06 08:17 | Outpatient (CLI) | payer OTHER, SELFPAY ==
[2024-03-06 09:28] LABS: Calcium 9.2 mg/dL (8.5-10.5)
[2024-03-06 09:34] LABS: 25 Hydroxy Vitamin D 53 ng/mL (30-100); Alanine Aminotransferase 11 U/L (0-33); Albumin Level 4.2 g/dL (3.5-5.2); Alkaline Phosphatase 105 U/L (35-105); Anion Gap 17.1 (5-19); Aspartate Amino Transferase 19 U/L (0-32); Blood Urea Nitrogen 11 mg/dL (6-20); Calcium 9.2 mg/dL (8.5-10.5); Carbon Dioxide 22 mmol/L (22-29); Chloride 102 mmol/L (98-107); Globulin 2.9 g/dL (1.3-4.6); Glomerular Filtration Rate 105.4 mL/min (90-130); Glucose 134 mg/dL (65-115); Magnesium 1.8 mg/dL (1.7-2.3); Osmolality Calculated 285 mOsm/kg (285-295); Phosphorus 2.7 mg/dL (2.5-4.5); Potassium 4.1 mmol/L (3.5-5.1); Sodium 137 mmol/L (136-145); Thyroid Stimulating Hormone 0.77 uIU/mL (0.27-4.20); Total Bilirubin 0.3 mg/dL (0.15-1.2); Total Protein 7.1 g/dL (6.6-8.7)
[2024-03-06 09:36] LABS: Parathyroid Hormone 40.7 pg/mL (15-65)
[2024-03-07 08:55] LABS: PROTEIN, TOTAL 6.6 g/dL (6.1-8.1)
[2024-03-07 20:45] LABS: ALPHA 1 GLOBULIN 0.2 g/dL (0.2-0.3); ALPHA 2 GLOBULIN 0.7 g/dL (0.5-0.9); BETA 1 GLOBULIN 0.4 g/dL (0.4-0.6); BETA 2 GLOBULIN 0.4 g/dL (0.2-0.5); GAMMA GLOBULIN 0.9 g/dL (0.8-1.7)
== END 2024-03-06 08:18 | disposition home or self-care (01) ==
LOC: LAB 08:24
PROVIDERS: PCP Family Medicine; Visit Provider Nurse Practitioner
DX: T14.8XXA Other injury of unspecified body region, initial encounter (principal); Z78.0 Asymptomatic menopausal state; F43.21 Adjustment disorder with depressed mood; Z72.0 Tobacco use; E55.9 Vitamin D deficiency, unspecified; X58.XXXA Exposure to other specified factors, initial encounter
CPT/HCPCS: 36415; 80053; 82306; 82310; 83735; 83970; 84100; 84155; 84165; 84443; 86334

== ENCOUNTER 2024-03-28 08:25 | Outpatient (CLI) | payer OTHER, SELFPAY ==
--- NOTE | 2024-03-28 08:40 | MM_ITS ---
WS: [id number] BILATERAL 3D TOMOSYNTHESIS DIGITAL SCREENING MAMMOGRAPHY WITH CAD CLINICAL INFORMATION: screening for breast cancer HISTORY: Screening mammogram. No current complaints. COMPARISON: 2020 TECHNIQUE: Bilateral CC and MLO views. FINDINGS: The breasts are composed of heterogeneous fibroglandular density tissue, which can limit the detection of small underlying mass lesions. No suspicious mass, asymmetry, calcifications, or architectural distortion. No evidence of malignancy. Incidental punctate and lucent centered calcifications. MM/MM [facility] tomosynthesis [id number] IMPRESSION: DENSITY: The breasts are heterogeneously dense, which may obscure small masses. BI-RADS: 2 - Benign. FOLLOW UP: 1 Year Follow-up Recommend return to annual screening mammography.
== END 2024-03-28 08:26 | disposition home or self-care (01) ==
PROVIDERS: PCP Family Medicine; Visit Provider Family Medicine
DX: Z12.31 Encounter for screening mammogram for malignant neoplasm of breast (principal); R92.333 Mammographic heterogeneous density, bilateral breasts; R92.1 Mammographic calcification found on diagnostic imaging of breast
CPT/HCPCS: 77063; 77067

== ENCOUNTER → 2024-04-11 14:05 | Outpatient (BNVA) | payer OTHER, SELFPAY | PROVIDERS: PCP Family Medicine; Visit Provider Family Medicine | DX: Z12.4 Encounter for screening for malignant neoplasm of cervix (principal); N76.0 Acute vaginitis | CPT/HCPCS: 87070; 87205; 87491; 87591; 87624; 87661 ==

== ENCOUNTER → 2024-05-02 16:13 | Outpatient (BNVA) | payer OTHER, SELFPAY | PROVIDERS: PCP Family Medicine; Visit Provider Family Medicine | DX: A59.9 Trichomoniasis, unspecified (principal) | CPT/HCPCS: 87661 ==

== ENCOUNTER 2025-01-09 22:08 | Emergency (ER) | payer SELFPAY ==
[2025-01-09 22:12] VITALS: BP 199/133; PULSE 78; RESP 20; TEMP 36.4; O2SAT 100; BMI 27.4
--- NOTE | 2025-01-09 22:12 | XRR_ITS ---
PROCEDURE INFORMATION: Exam: XR Chest Exam date and time: 01/09/2025 10:18 PM Age: 54 years old Clinical indication: Cough; Additional info: Coughing TECHNIQUE: Imaging protocol: Radiologic exam of the chest. Views: 1 view. COMPARISON: CR XR chest 1V portable [id number] 04/23/2022 8:42 AM FINDINGS: Lungs: Similar hyperaeration associated with the upper lungs is noted. There are linear parenchymal opacities in the lateral aspect of the right lung base. A linear parenchymal opacity in the lateral aspect of the left mid lung is unchanged. No consolidation. Pleural spaces: Unremarkable. No pleural effusion. No pneumothorax. Heart/Mediastinum: Unremarkable. No cardiomegaly. Bones/joints: Unremarkable. XR/XR chest 1V portable [id number] IMPRESSION: No consolidation. There are linear parenchymal changes primarily at the right lung base which likely represent evidence of discoid atelectasis.
--- OUTSIDE RECORDS SUMMARY | 2025-01-09 22:20 | XMS_ITS | Clinical Summary ---
Author Organization [facility] Address [address] [place] [address] Care Team Providers Care Mechanical Sound Technician Name Role Phone Brielle Lyles Primary Care Provider [phone] Allergies Active Allergy Reactions Criticality Noted Date Comments Penicillins Rash Low 04/02/2020 Medications albuterol HFA 90 mcg inhalerIndications :Bronchiectasis with acute exacerbation (CMS/HCC) Take 2 Puffs by inhalation every 6 hours as needed for Shortness of Breath. 8.5 Gram 0 Active metoprolol tartrate (LOPRESSOR) 25 mg tabletIndications: Essential hypertension Take 25 mg by mouth 2 times daily. Active atorvastatin (LIPITOR) 80 mg tabletIndications: Mixed hyperlipidemia due to type 2 diabetes mellitus (CMS/HCC) Take 80 mg by mouth daily with supper. Active aspirin (ECOTRIN EC) 81 mg Tablet, Delayed Release (E.C.) Take 81 mg by mouth daily. Active cetirizine (ZyrTEC) 10 mg tabletIndications: Seasonal allergic rhinitis due to pollen Take 10 mg by mouth daily. Active multivitamin (DAILY-SADAF) tablet Take 1 Tablet by mouth daily. Active buPROPion HCL (Wellbutrin SR) 150 mg Sustained Release 12 hour tabletIndications: Moderate episode of recurrent major depressive disorder (CMS/HCC) Take 1 tab daily for 1 week then increase to BID. 60 Tablet 2 1 Active venlafaxine (EFFEXOR XR) 37.5 mg Extended Release 24 hour capsuleIndications :Moderate episode of recurrent major depressive disorder (CMS/HCC) Take 1 capsule by mouth once daily 30 Capsule 2 1 Active Active Problems Problem Noted Date Diagnosed Date Cigarette dependence 10/07/2019 Essential hypertension 10/07/2019 Mixed hyperlipidemia due to type 2 diabetes mildred itus 10/07/2019 Seasonal allergic rhinitis due to pollen 020 Social History Tobacco Use Types Packs/Day Years Used Date Smoking Tobacco: Every Day Cigarettes Smokeless Tobacco: Never Tobacco Cessation:Ready to Q uit: No Alcohol Use Standard Drinks/Week Comments Yes 0 (1 standard drink = 0.6 oz pur e alcohol) Comments No Sex and Gender Information Value Date Recorded Sex Assigned at Not on file Legal Sex Female 3:30 PM CDT Gender Identity Not on file Sexual Orientation Not on file Last Filed Vital Signs Vital Sign Reading Time Taken Comments Blood Pressure 118/82 04/02/2020 9:52 AM GUIDANCE SECRETARY Pulse 74 04/02/2020 9:52 AM GUIDANCE SECRETARY Temperature 36.9 C (98.5 F) 04/02/2020 9:52 AM GUIDANCE SECRETARY Respiratory Rate 18 09/26/2019 3:56 PM CDT Oxygen Saturation 99% 04/02/2020 9:52 AM GUIDANCE SECRETARY Inhaled Oxygen Concentration - - Weight 54 kg (119 lb) 04/02/2020 9:52 AM GUIDANCE SECRETARY Height 157.5 cm (5' 2 ) 04/02/2020 9:52 AM GUIDANCE SECRETARY Body Mass Index 21.77 04/02/2020 9:52 AM GUIDANCE SECRETARY Plan of Treatment Health Maintenance Due Date Last Done Comments DIABETES ANNUAL FOOT EXAM 1990 DIABETES ANNUAL RETINAL EXAM 1990 DIABETES MICROALBUMIN ANNUAL SCREEN 1990 DTAP/TDAP/TD VACCINES (1 - Tdap) 1991 HEPATITIS B VACCINES (1 of 3 - 19+ 3-dose series) 1991 HPV/Cotest (21-29) 1993 CERVICAL CANCER SCREENING 2002 HPV/Cotest (30-65) 2002 PAP SMEAR 2002 COLORECTAL SCREENING 2017 Colorectal Cancer Screening 2017 FIT-DNA Q 3 years 2017 FIT/FOBT Q 1 year 2017 Flex Sig/CT Colonography Q 5 years 2017 DIABETES HBA1C Q 6 MONTHS 09/30/2020 04/02/2020 BREAST CANCER SCREENING 12/06/2020 12/07/19 20, 11/09/2019, 10/15/2017, Additional history exists LDL CHOLESTEROL ANNUAL 04/02/2021 04/02/2020 Preventative Visit-Managed Medicaid 04/03/2021 04/02/2020, 09/26/2019 ZOSTER VACCINE (1 of 2) 2022 INFLUENZA VACCINE (#1) 2024 Procedures Procedure Name Priority Date/Time Associated Diagnosis Comments LIPID PANEL Routine 04/02/2020 10:33 AM GUIDANCE SECRETARY Normal routine physical examination HEMOGLOBIN A1C Routine 04/02/2020 10:33 AM GUIDANCE SECRETARY Normal routine physical examination MAMMO UNILATERAL ADDL VW LEFT Routine 12/07/2019 from Last 3 Months or Most Recently Relevant to Health Maintenance Results * (ABNORMAL) HEMOGLOBIN A1C (04/02/2020 10:33 AM GUIDANCE SECRETARY) HEMOGLOBIN A1C 5.9(H) See Comment % 04/03/2020 9:15 AM GUIDANCE SECRETARY [facility] EST. AVG GLUCOSE, A1C 123 mg/dL 04/03/2020 9:15 AM [facility] Blood Venipuncture / Unknown 04/02/2020 10:33 AM GUIDANCE SECRETARY 04/02/2020 8:10 PM GUIDANCE SECRETARY Narrative [facility] - 04/03/2020 9:15 AM GUIDANCE SECRETARY HGB A1C INTERPRETATION NORMAL: <5.7% PRE-DIABETES: 5.7 - 6.4% DIABETES: 6.5% OR GREATER Falsely low A1C measurements can occur when: 1. Anemia and/or hemolytic anemia is present. 2. Hemoglobin variants present. 3. Renal failure. 4. Transfusion of blood product in the last 120 days. We recommend ordering a fructosamine test([id number]) to more accurately assess glycemic status if any of the above conditions are present. us Alannah Kurtz SWITCHBOARD INSPECTOR CHEMISTRY ORDERABLES Final Re sult [facility] CLIA# [id number] [facility] [place] [address] * (ABNORMAL) LIPID PANEL (04/02/2020 10:33 AM [facility]) CHOLESTEROL 248(H) <200 mg/dL 04/03/2020 9:13 AM [facility] TRIGLYCERIDE 114 <150 mg/dL 04/03/2020 9:13 AM [facility] HDL 38(L) 40 - 59 mg/dL 04/03/2020 9:13 AM [facility] LDL CALCULATED 187(H) <100 mg/dL 04/03/2020 9:13 AM [facility] NON-HDL CHOLESTEROL 210(H) <130 mg/dL 04/03/2020 9:13 AM [facility] Blood Venipuncture / Unknown 04/02/2020 10:33 AM GUIDANCE SECRETARY 04/02/2020 8:11 PM GUIDANCE SECRETARY Narrative [facility] - 04/03/2020 9:13 AM GUIDANCE SECRETARY TOTAL CHOLESTEROL mg/dL Desirable <200 Borderline high 200-239 High >=240 TRIGLYCERIDES mg/dL Normal <150 Borderline high 150-199 High 200-499 Very high >=500 HDL CHOLESTEROL mg/dL Low <40 Normal 40-59 Desirable >=60 NON HDL CHOLESTEROL mg/dL Optimal <130 Near Optimal 130-159 Borderline High 160-189 Very High >=190 CALCULATED LDL mg/dL LDL <70, OPTIMAL if have Atherosclerotic cardiovascular disease (ASCVD) or intermediate or higher (>7.5%) 10 year risk of ASCVD including most adults with diabetes. LDL <100, Optimal in adult patients with low (<7.5%) 10 year ASCVD risk LDL 100-160, Suboptimal LDL >160, High LDL >190, Very high ATPIII Guidelines Reference Ranges for Lipid Panels (NCEP/AMA) . us Alannah Kurtz SWITCHBOARD INSPECTOR CHEMISTRY ORDERABLES Final Re sult [facility] CLIA# [id number] [facility] [place] [address] * MAMMO UNILATERAL ADDL VW LEFT (12/07/2019) Anatomical Region Laterality Modality Breast Left Mammography us Brielle Lyles DO MAMMO ORDERABLES Edited Res ult - Final from Last 3 Months or Most Recently Relevant to Health Maintenance Insurance [facility] EFRNANDO Care Teams Mechanical Sound Technician Relationship Specialty Start Date End Date Brielle Lyles DO [address] [place] [address] PCP - General Family Practice 10/10/19
--- OUTSIDE RECORDS SUMMARY | 2025-01-09 22:20 | XMS_ITS | Clinical Summary ---
Author Organization [facility] Address [address] Tran: Epic Prelude ADT [place] [id number] Care Team Providers Care Director [employer] Name Role Phone Brielle Lyles DO Primary Care Provider Allergies Active Allergy Reactions Criticality Noted Date Comments Penicillins Rash Low 04/02/2020 Medications albuterol HFA 90 mcg inhalerIndication s:Bronchiectasis with acute exacerbation (CMS/HCC) Take 2 Puffs by inhalation every 6 hours as needed for Shortness of Breath. 8.5 Gram 0 0 Active multivitamin (DAILY-SADAF) tablet Take 1 Tablet by mouth daily. 0 Active aspirin (ECOTRIN EC) 81 mg Tablet, Delayed Release (E.C.) Take 81 mg by mouth daily. 0 Active cetirizine (ZyrTEC) 10 mg tabletIndications :Seasonal allergic rhinitis due to pollen Take 10 mg by mouth daily. 0 Active pantoprazole sodium (PANTOPRAZOLE ORAL) Take by mouth. Activ e hydrOXYzine HCL (ATARAX) 25 mg tabletIndications :Generalized anxiety disorder Take 1-2 Tablets (25-50 mg) by mouth 1 time daily as needed for Itching. 180 Tablet 4 3 Active oxyBUTYnin (DITROPAN XL) 5 mg Extended Release 24 hour tabletIndications :Overactive bladder take one tablet by mouth every day 30 Tablet 1 3 Active busPIRone (BUSPAR) 15 mg TabletIndications :Generalized anxiety disorder Take 1 Tablet (15 mg) by mouth 3 times daily as needed for Anxiety. 90 Tablet 3 4 Active atorvastatin (LIPITOR) 80 mg tablet TAKE ONE TABLET (80mg) BY MOUTH EVERY DAY with SUPPER 90 Tablet 4 4 Active metoprolol succinate (TOPROL XL) 25 mg Extended Release 24 hour tabletIndications :Essential hypertension,Hist ory of heart artery stent TAKE ONE TABLET BY MOUTH DAILY 30 Tablet 5 Active DULoxetine (CYMBALTA) 30 mg Capsule, Delayed Release(E.C.)Irma cations:Recurrent major depressive disorder, in full remission,General ized anxiety disorder TAKE ONE CAPSULE BY MOUTH DAILY 30 Capsule 5 Active Active Problems Problem Noted Date Diagnosed Date Prediabetes 04/28/2023 Chronic midline low back pain with right-sided s ciatica 08/11/2022 Generalized anxiety disorder 08/11/2022 Mixed hyperlipidemia 08/11/2022 Recurrent major depressive disorder, in full rem ission 08/11/2022 History of heart artery stent 08/07/2022 Overview (08/07/2022): Stated had two stents placed through [facility] [place] Cigarette nicotine dependence without complicati on 10/07/2019 Seasonal allergic rhinitis due to pollen 020 Essential hypertension 10/07/2019 Resolved Problems Problem Noted Date Diagnosed Date Resolved Date Mixed hyperlipidemia due to type 2 diabetes mellitus 10/07/2019 04/28/2023 Social History Tobacco Use Types Packs/Day Years Used Date Smoking Tobacco: Every Day Cigarettes Smokeless Tobacco: Never Tobacco Cessation:Ready to Q uit: Not Asked; Counseling Given: Not Answered Alcohol Use Standard Drinks/Week Comments Yes 0 (1 standard drink = 0.6 oz pur e alcohol) Feeling Safe Answer Date Recorded Are you in a relationship wi th someone who hurts you emotionally and/or physically? No 07/12/2022 Comments No Sex and Gender Information Value Date Recorded Sex Assigned at Not on file Legal Sex Female 9:44 PM [employer] Gender Identity Not on file Sexual Orientation Not on file Last Filed Vital Signs Vital Sign Reading Time Taken Comments Blood Pressure 124/84 06/28/2023 3:08 PM CDT Pulse 78 06/28/2023 3:08 PM CDT Temperature 36.8 C (98.3 F) 06/28/2023 3:08 PM CDT Respiratory Rate 17 06/28/2023 3:08 PM CDT Oxygen Saturation 96% 06/28/2023 3:08 PM CDT Inhaled Oxygen Concentration - - Weight 59.1 kg (130 lb 6.4 oz) 06/28/2023 3:08 P M CDT Height 157.5 cm (5' 2 ) 06/28/2023 3:08 PM CDT Body Mass Index 23.85 06/28/2023 3:08 PM CDT Plan of Treatment Health Maintenance Due Date Last Done Comments DTAP/TDAP/TD VACCINES (1 - Tdap) 1991 HEPATITIS B VACCINES (1 of 3 - 19+ 3-dose series) 1991 HPV/Cotest (21-29) 1993 CERVICAL CANCER SCREENING 2002 HPV/Cotest (30-65) 2002 PAP SMEAR 2002 COLORECTAL SCREENING 2017 Colorectal Cancer Screening 2017 FIT-DNA Q 3 years 2017 FIT/FOBT Q 1 year 2017 Flex Sig/CT Colonography Q 5 years 2017 BREAST CANCER SCREENING 12/06/2020 12/07/19 20, 12/07/2019, 11/09/2019, Additional history exists ZOSTER VACCINE (1 of 2) 2022 Preventative Visit- Commercial 02/09/2024 04/02/2020 , 09/26/2019 INFLUENZA VACCINE (#1) 2024 Procedures Procedure Name Priority Date/Time Associated Diagnosis Comments MAMMO UNILATERAL ADDL VW LEFT Routine 12/07/2019 12:00 AM CDT from Last 3 Months or Most Recently Relevant to Health Maintenance Results * MAMMO UNILATERAL ADDL VW LEFT (12/07/2019 12:00 AM CDT) Anatomical Region Laterality Modality Breast Left Other us Brielle Lyles DO MAMMO ORDERABLES Edited Res ult - Final from Last 3 Months or Most Recently Relevant to Health Maintenance Insurance [address] [place] [address] [employer] [place] Care Teams Director [employer] Relationship Specialty Start Date End Date Brielle Lyles DO [address] [place] [id number] PCP - General Family Practice 10/10/19
--- NOTE | 2025-01-09 22:21 | ECG_ITS ---
[facility] Test Date: 2025-01-09 Pat Name: Maria De Jesus Black Department: Room: Gender: Female Home Paraprofessional: : 1970 Requested By: Kyrie Mckeon Order Number: [id number] Mayra MD: Liu Hargrove M.D. Measurements Intervals [place] Rate: 63 P: 67 KS: 144 QRS: 63 QRSD: 106 T: 62 QT: 435 QTc: 448 Interpretive Statements SINUS RHYTHM Compared to ECG 07/10/2022 18:40:27 Sinus bradycardia no longer present ST (T wave) deviation no longer present Electronically Signed On 01-10-2025 23:40:49 DIRECTOR OF CONSUMER MARKETING by Liu Hargrove M.D. [email or web address]
[2025-01-09 22:30] VITALS: BP 209/129; PULSE 72; RESP 14; O2SAT 95
--- NOTE | 2025-01-09 22:31 | ED_ITS ---
HPI - Abdominal Pain 2 General: Chief Complaint: Abdominal Pain Stated Complaint: Cold\Coughing Chest Hurts Time Seen by Provider: 01/09/25 22:12 Source: patient Mode of arrival: ambulatory Limitations: no limitations History of Present Illness: Patient is a 54-year-old female with past medical history of pneumothorax, ischemic cardiomyopathy, and hypertension who presents to the emergency department complaining of sudden onset chest pain onset 4 hours prehospital. States that she was helping a friend move a stove when her chest pain started, and has moved into the epigastrium where she states it is primarily hurting at this time. No other radiation, no specific alleviating or exacerbating factor at this time. Does report a history of 2 stents that she had placed in [address] She is not endorsing any nausea or vomiting, and states that this pain is not similar to prior heart attack. She is hypertensive at this time 199/133, states that this is from her pain and that she used to take metoprolol but due to insurance purposes has not been taking this. No diaphoresis, weakness, syncopal episodes, shortness of breath, or other symptoms other than sensation of cough and chest congestion. MD elicited complaint: abdominal pain and other (chest pain) Pertinent past history: myocardial infarction Onset (ago): hour(s) (4) Pain Consistency: constant Location: Epigastric Severity: moderate Associated Symptoms: Denies bloating, change in stool character, chills, constipation, diarrhea, dysuria, fever(s), hematochezia, nausea and vomiting Related Data Home Medications ?Medication ?Instructions ?Recorded ?Confirmed acetaminophen 325 mg capsule 325 mg PO QID PRN Pain 05/02/24 (Tylenol) aspirin 81 mg tablet,delayed 81 mg PO DAILY 11/17/21 0 05/02/24 release ibuprofen 200 mg tablet (Advil) 200 mg PO Q6H PRN Pain 11/17/21 05/02/24 cholecalciferol (vitamin D3) 25 25 mcg PO DAILY 05/02/24 mcg (1,000 unit) tablet (Vitamin D3) [id number] ac 400 1 tab PO DAILY 04/23/2204/09 5/25 mcg-calcium carb 500 mg-vit K1 20 mcg tablet (Women's 50 Plus Multivitamin) atorvastatin 40 mg tablet 40 mg PO DAILY 01/28/2404/09 Previous Rx's ?Medication ?Instructions ?Recorded metronidazole 500 mg tablet 500 mg PO BID 7 days #14 t abs 04/20/24 duloxetine 20 mg capsule,delayed 20 mg PO QDAY #90 cap s 06/01/24 release metoprolol succinate 25 mg 25 mg PO DAILY #30 tabs 07/02 tablet,extended release 24 hr (Toprol XL) omeprazole 20 mg capsule,delayed 20 mg PO DAILY #30 ca ps 01/09/25 release Allergies Allergy/AdvReac Type Severity Reaction Status Date / Time Penicillins Allergy ALGY-Rash Verified 05/02/24 15:49 Review of Systems 2 General: Reports: 10 or more systems reviewed and unremarkable except in HPI and below Const: Denies: fever(s), chills, change in appetite, change in weight or diaphoresis ENMT: Denies: throat pain or hoarseness Card: Reports: chest pain; Denies: palpitations or lightheadedness Resp: Reports: non-productive cough, wheezing and chest congestion; Denies: dyspnea or productive cough GI: Reports: abdominal pain; Denies: nausea, vomiting, diarrhea, constipation, bloating, change in stool character or hematochezia : Denies: flank pain, difficulty voiding, dysuria, urinary frequency or urinary urgency Musc: Denies: neck pain or back pain Skin/Breast: Denies: rash or new lesions Neuro: Denies: headache(s) or dizziness PFSH ED 2 PFSH: Medical History Hx of pneumothorax R side 11.24 with rib fxes; no chest tube; after fall from horse Screening for lung cancer started age 15; 1ppd; had CT chest [place] 01/01 Nicotine dependence, cigarettes, uncomplicated ASHD (arteriosclerotic heart disease) Ischemic cardiomyopathy HTN (hypertension) Dyslipidemia Surgical History History of ankle surgery Left ankle surgery after fx 11.24 Status post tubal ligation S/P PTCA (percutaneous transluminal coronary angioplasty) 2 stents Family History Father Diabetes Hypertension Mother Hypertension Other Depression Social History (Reviewed 12/02/25 @ 22:32 by BRENDA Flores Smoking and tobacco/nicotine status: current every day tobacco/nicotine user cigarettes Packs smoked per day: 1.5 Alcohol intake: current Alcohol intake frequency: few times a month Substance/Drug Use: never Household members: none Marital status: Number of children: 3 Highest education level completed: Some College, No Degree Current occupational status: employed Current occupation: works for [employer] Physical Exam 2 Const: COMMON NORMALS: patient oriented x3 and no limitations GENERAL APPEARANCE: cooperative and well developed ORIENTATION/CONSCIOUSNESS: Yes awake, Yes oriented to person, Yes oriented to place and Yes oriented to time OTHER: Mild active distress at this time secondary to pain Neck/C-Spine: COMMON NORMALS: full ROM, supple and no JVD Resp: COMMON NORMALS: normal respiratory effort, No retractions, No use of accessory muscles and clear to auscultation bilaterally AUSCULTATION: clear to auscultation bilaterally Cardio: COMMON NORMALS: no JVD, regular rate, regular rhythm, No clicks present (Cardio), No murmurs present (Cardio) and No rub (Cardio) RATE: r egular rate RHYTHM: regular rhythm GI: COMMON NORMALS: Soft to palpation AUSCULTATION: Yes normoactive bowel sounds PALPATION: Yes Soft to palpation and Yes Tenderness to palpation present (GI) (Epigastric) RECTAL EXAM: deferred Extremity: COMMON NORMALS: normal to inspection, full ROM and capillary refill normal Neuro: COMMON NORMALS: patient oriented x3, moves all extremities, no focal motor deficits and no sensory deficits noted SENSORIUM/ORIENTATION: Yes oriented to person, Yes oriented to place and Yes oriented to time Skin: COMMON NORMALS: no rashes or lesions noted GENERAL SKIN EXAM: no rashes or lesions noted Course 2 Vital Signs: Vital signs: Vital Signs Temperature 97.6 F 01/09/25 22:12 Pulse Rate 72 01/09/25 22:30 Respiratory Rate 14 01/09/25 22:51 Blood Pressure 209/129 01/09/25 22:30 Pulse Oximetry 96 01/09/25 22:51 Oxygen Delivery Me thod Room Air 01/09/25 22:30 MDM - Abdominal Pain Medical Decision Making Patient presented with sudden onset chest pain radiating to the epigastrium while helping friend move a stove. History of cardiac stents and heart attack, she did note that this pain felt different. No shortness of breath or other signs of respiratory distress on exam. She is hypertensive on arrival, states that she used to be on metoprolol for blood pressure control but has not been taking this due to insurance reasons and being unable to fill prescriptions. No other anginal equivalents were noted to me. She had amelioration of symptoms following fentanyl IV, her troponin is negative, EKG showing normal sinus rhythm, and chest x-ray unremarkable with no mediastinal widening to indicate any dissection and she is not endorsing any back pain. No other concerning findings on the x-ray. Rest of her labs are normal. She had stated that the pain also had somewhat come on after she had eaten something, endorsing that she feels like this is acid reflux. GI cocktail is given prior to discharge and will start on omeprazole she is to follow-up with primary care for reevaluation and to continue monitoring blood pressures at home. Gave her return precautions of which she verbalizes understanding. Lab Data 01/09/25 22:45 01/09/25 22:45 Labs/Radiology: Radiology Impressions Chest X-Ray 01/09/25 22:12 IMPRESSION: No consolidation. There are linear parenchymal changes primarily at the right lung base which likely represent evidence of discoid atelectasis. Laboratory Results WBC 9.03 10^3/uL (3.29-11.43) 01/09/25 22:45 RBC 5.11 10^6/uL (3.85-5.65) 01/09/25 22:45 Hgb 15.60 g/dL (11.27-16.99) 01/09/25 22:45 Hct 46.4 % (36-47) 01/09/25 22:45 MCV 90.8 fl (85-98) 01/09/25 22:45 MCH 30.5 pg (27-33) 01/09/25 22:45 MCHC 33.6 g/dL (30-55) 01/09/25 22:45 RDW 12.8 % (12.1-15.1) 01/09/25 22:45 Plt Count 253 10^3/cmm (157-399) 01/09/25 22:45 MPV 8.6 fL (7.4-10.4) 01/09/25 22:45 Neut % (Auto) 72.1 % 01/09/25 22:45 Lymph % (Auto) 19.5 % 01/09/25 22:45 Lares % (Auto) 6.4 % 01/09/25 22:45 Eos % (Auto) 0.7 % 01/09/25 22:45 Baso % (Auto) 0.7 % 01/09/25 22:45 Neut # (Auto) 6.52 10^3/uL (1.8-7.7) 01/09/25 22:45 Lymph # (Auto) 1.8 10^3/uL (0.8-4.8) 01/09/25 22:45 Lares # (Auto) 0.6 10^3/uL (0.2-0.9) 01/09/25 22:45 Eos # (Auto) 0.1 10^3/uL (0.0-0.8) 01/09/25 22:45 Baso # (Auto) 0.1 10^3/uL (0.0-0.1) 01/09/25 22:45 Nucleated RBC % (auto) 0 % 01/09/25 22:45 Nucleated RBCs # 0.0 /100WBC 01/09/25 22:45 Sodium 136 mmol/L (136-145) 01/09/25 22:45 Potassium 4.0 mmol/L (3.5-5.1) 01/09/25 22:45 Chloride 101 mmol/L (98-107) 01/09/25 22:45 Carbon Dioxide 23 mmol/L (22-29) 01/09/25 22:45 Anion Gap 16.0 (5-19) 01/09/25 22:45 BUN 15 mg/dL (6-20) 01/09/25 22:45 Creatinine 0.6 mg/dL (0.5-0.9) 01/09/25 22:45 GFR Calculation 105.0 mL/min (90-130) 01/09/25 22:45 Glucose 135 mg/dL (65-115) H 01/09/25 22:45 Calculated Osmolality 285 mOsm/kg (285-295) 01/09/25 22:45 Calcium 9.5 mg/dL (8.5-10.5) 01/09/25 22:45 Total Bilirubin 0.2 mg/dL (0.15-1.2) 01/09/25 22:45 AST 19 U/L (0-32) 01/09/25 22:45 ALT 9 U/L (0-33) 01/09/25 22:45 Alkaline Phosphatase 106 U/L (35-105) H 01/09/25 22:45 Troponin T Baseline 8 ng/L (0-10) 01/09/25 22:45 Total Protein 6.9 g/dL (6.6-8.7) 01/09/25 22:45 Albumin 4.6 g/dL (3.5-5.2) 01/09/25 22:45 Globulin 2.3 g/dL (1.3-4.6) 01/09/25 22:45 Lipase 87 U/L (13-60) H 01/09/25 22:45 Influenza A (PCR) Negative (Negative) 01/09/25 22:54 Influenza Type B (PCR) Negative (Negative) 01/09/25 22:54 RSV (PCR) Negative (Negative) 01/09/25 22:54 SARS-CoV-2 (PCR) Negative (Negative) 01/09/25 22:54 All radiology interpretation(s) finalized by discharge Discharge Plan Discharge Patient Disposition: Home Clinical Impression: Chest pain due to GERD Condition: Stable Prescriptions: New omeprazole 20 mg capsule,delayed release(DR/EC) 20 mg PO DAILY Qty: 30 0RF No Action atorvastatin 40 mg tablet 40 mg PO DAILY metronidazole 500 mg tablet 500 mg PO BID 7 Days Qty: 14 0RF duloxetine 20 mg capsule,delayed release(DR/EC) 20 mg PO QDAY Qty: 90 0RF metoprolol succinate [Toprol XL] 25 mg tablet extended release 24 hr 25 mg PO DAILY Qty: 30 0RF Rx Instructions: Need appt for future refills aspirin [Aspir-81] 81 mg Tablet,Delayed Release (Dr/Ec) 81 mg PO DAILY ibuprofen [Advil] 200 mg Tablet 200 mg PO Q6H PRN (Reason: Pain) acetaminophen [Tylenol] 325 mg Capsule 325 mg PO QID PRN (Reason: Pain) Vitamin D3 25 mcg (1,000 unit) Tablet 25 mcg PO DAILY Women's 50 Plus Multivitamin 400 mcg-500 mg calcium-20 mcg Tablet 1 tab PO DAILY Discharge Orders: Discharge ED (Routine); Ordered 01/09/25 Ordered By: Kyrie Hermosillo Referrals: Zuleyma Carpenter MD [Primary Care Provider, Family Practice] Patient Instructions: Patient Portal & Brie Instructions Activity Restrictions/Additional Instructions: GERD Discharge Instructions Your Diagnosis You came to the emergency department today with chest pain. After a complete heart evaluation that showed your heart is healthy, you were diagnosed with g astroesophageal reflux disease (GERD). This means stomach acid is flowing back up into your food pipe (esophagus), which causes chest pain and discomfort. Your Medication You have been prescribed omeprazole 20 mg to take once daily. How to take your medication: - Take one pill 30 to 60 minutes before a meal (preferably before breakfast) - Do NOT take it at bedtime - Swallow the pill whole with water - You can use antacids (like Tums) if you have breakthrough symptoms - Continue taking this medication for 4 to 8 weeks as directed This medication works by reducing the amount of acid your stomach makes, which helps your symptoms improve and allows your esophagus to heal. Omeprazole is safe and effective for treating GERD. Lifestyle Changes to Help Your Symptoms Making these changes can significantly improve your GERD symptoms: Diet and Eating Habits: - Avoid eating within 2 to 3 hours before bedtime - Eat smaller meals throughout the day instead of large meals - Avoid foods that trigger your symptoms, such as: - Spicy foods - High-fat meals - Chocolate - Peppermint - Onions - Tomato products - Fresh citrus juices - Limit or avoid alcohol, caffeine, and carbonated beverages Weight and Lifestyle: - Lose weight if you are overweight - even a small amount of weight loss can help - Stop smoking if you smoke - Avoid tight-fitting clothes around your waist - Avoid bending over after meals - Try chewing gum to increase saliva, which helps neutralize acid Sleep Position: - Elevate the head of your bed 6 to 8 inches using blocks under the bed legs or a wedge pillow - Avoid sleeping on your right side - Do not lie down or nap right after eating Warning Signs - When to Seek Medical Care Call your doctor or return to the emergency department if you experience: - Difficulty swallowing or pain when swallowing - Vomiting blood or material that looks like coffee grounds - Black, tarry stools - Unexplained weight loss - Chest pain that feels different from your GERD symptoms - Symptoms that do not improve after 4 weeks of medication Follow-Up Care You must follow up with your primary care provider for reevaluation. Your doctor will assess how well the medication is working and determine if you need to continue it, adjust the dose, or try a different approach. If your symptoms improve with the medication, your doctor may try to reduce the dose or stop it after the initial treatment period. However, do not stop taking your medication without talking to your doctor first. Important Safety Information Omeprazole is considered safe for treating GERD. Some people worry about long- term use of this medication, but when used appropriately for GERD, the benefits outweigh the risks. Your doctor will work with you to use the lowest effective dose that controls your symptoms. Questions? If you have any questions about your diagnosis, medication, or these instructions, please contact your primary care provider. Print Language: Hungarian Coding Level of Care Code ED Insole Presser for Luisito Barker
[2025-01-09 22:51] VITALS: RESP 14; O2SAT 96
[2025-01-09] MEDS: fentaNYL 50 mcg/mL INJ 2mL IVP (22:51)
[2025-01-09 22:54] LABS: Hematocrit 46.4 % (36-47); Hemoglobin 15.60 g/dL (11.27-16.99); Mean Corpuscular HGB Conc 33.6 g/dL (30-55); Mean Corpuscular Hemoglobin 30.5 pg (27-33); Mean Corpuscular Volume 90.8 fl (85-98); Nucleated Red Blood Cells % 0 %; Platelet Count 253 10^3/cmm (157-399); Red Blood Count 5.11 10^6/uL (3.85-5.65); White Blood Count 9.03 10^3/uL (3.29-11.43)
[2025-01-09 23:19] LABS: Troponin(5th) Baseline 8 ng/L (0-10)
[2025-01-09 23:21] LABS: Alanine Aminotransferase 9 U/L (0-33); Albumin Level 4.6 g/dL (3.5-5.2); Alkaline Phosphatase 106 U/L (35-105); Aspartate Amino Transferase 19 U/L (0-32); Blood Urea Nitrogen 15 mg/dL (6-20); Calcium 9.5 mg/dL (8.5-10.5); Carbon Dioxide 23 mmol/L (22-29); Chloride 101 mmol/L (98-107); Creatinine Clr Calc Pharmacy 99.1716; Globulin 2.3 g/dL (1.3-4.6); Glucose 135 mg/dL (65-115); Lipase 87 U/L (13-60); Osmolality Calculated 285 mOsm/kg (285-295); Sodium 136 mmol/L (136-145); Total Protein 6.9 g/dL (6.6-8.7)
[2025-01-09 23:22] LABS: Anion Gap 16.0 (5-19); Potassium 4.0 mmol/L (3.5-5.1)
[2025-01-09 23:37] LABS: Respiratory Syncytial Virus Ce NEGATIVE (Negative); SARS-CoV-2 PCR NEGATIVE (Negative)
[2025-01-10] MEDS: lidocaine 2% viscous 15 ML, aluminum-mag hydrox-simethicon 30 ML, sucralfate oral liq 1 GM PO (00:10)
[2025-01-10 00:22] VITALS: BP 179/117; PULSE 62; RESP 14; O2SAT 96
== END 2025-01-10 00:27 | disposition home or self-care (01) ==
PROVIDERS: Emergency Provider Physician Assistant; PCP Family Medicine
DX: K21.9 Gastro-esophageal reflux disease without esophagitis (principal); Z11.52 Encounter for screening for COVID-19; F17.210 Nicotine dependence, cigarettes, uncomplicated; E78.5 Hyperlipidemia, unspecified; I10 Essential (primary) hypertension
CPT/HCPCS: 36415; 71045; 80053; 83690; 84484; 85025; 87637; 93005; 96374; 99285; J3010; J9999